=== PATIENT | male | born 1980 | race Caucasian/White ===

== ENCOUNTER 2020-09-01 10:53 | Emergency (ER) | payer SELFPAY ==
--- NOTE | 2020-09-01 11:28 | EDM.PDOC ---
ED HPI GENERAL MEDICAL PROBLEM - General Chief Complaint: Upper Extremity Injury/Pain Stated Complaint: RT WRIST SWELLING Time Seen by Provider: 09/01/20 11:07 Source of Information: Reports: Patient, RN Notes Reviewed History Limitations: Reports: No Limitations - History of Present Illness INITIAL COMMENTS - FREE TEXT/NARRATIVE: Patient is a 40-year-old male who presents to the ED for the evaluation of his right wrist swelling. Patient notes for the better part of this last month, he has appreciated some right wrist swelling, that seems to be worse in the morning. 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 He also notes that he slipped on the ice a week or 2 ago, and landed on his outstretched right wrist. He is appreciating some swelling to the ulnar aspect of his wrist. He is denying any numbness or tingling into the fingers, can use his fingers in all range of motion, patient is right-handed dominant. He has not taken any sort of pain medications or Tylenol or ibuprofen for this. His has been using icy hot on the area, with little to no relief. He denies any other sick-like symptoms. Right Wrist Pain Score (Numeric/FACES): 4 - Related Data Allergies Allergy/AdvReac Type Severity Reaction Status Date / Time No Known Allergies Allergy Verified 09/01/20 11:11 Home Meds: Home Meds predniSONE 20 mg PO ASDIRECTED #15 tab 09/01/20 [Rx] Past Medical History - Past Surgical History HEENT Surgical History: Reports: Other (See Below) Other HEENT Surgeries/Procedures: Jaw Surgery Social & Family History - Tobacco Use Tobacco Use Status *Q: Current Every Day Tobacco User Years of Tobacco use: 24 Packs/Tins Daily: 0.1 - Caffeine Use Caffeine Use: Reports: Energy Drinks - Recreational Drug Use Recreational Drug Use: No Review of Systems - Review of Systems Review Of Systems: Comprehensive ROS is negative, except as noted in HPI. ED EXAM, GENERAL - Physical Exam Exam: See Below Exam Limited By: No Limitations General Appearance: Alert, WD/WN, No Apparent Distress Respiratory/Chest: No Respiratory Distress, Lungs Clear, Normal Breath Sounds, No Accessory Muscle Use, Chest Non-Tender Cardiovascular: Normal Peripheral Pulses, Regular Rate, Rhythm, No Edema Peripheral Pulses: 2+: Radial (L), Radial (R) Extremities: Normal Inspection, Normal Range of Motion (pt states that he has most pain with supination/pronation of wrist), Normal Capillary Refill, Other (mild amount of swelling to wrist appreciated; tinel's negative, but Phalen's was positive). No: Increased Warmth, Redness Psychiatric: Normal Affect, Normal Mood Skin Exam: Warm, Dry, Intact, Normal Color, No Rash Course - Vital Signs Last Recorded V/S: Last Vital Signs Temp 97.6 F 09/01/20 11:07 Pulse 76 09/01/20 11:07 Resp 16 09/01/20 11:07 BP 152/106 H 09/01/20 11:07 Pulse Ox 98 09/01/20 11:07 - Orders/Labs/Meds Orders: Active Orders 24 hr Category Date Time Status Wrist Comp Min 3V Rt [CR] Stat Exams 09/01/20 11:23 Ordered - Re-Assessments/Exams Free Text/Narrative Re-Assessment/Exam: 09/01/20 11:27 Patient presents to the ED for evaluation of his right wrist swelling, due to his reported fall we will go ahead and x-rayed the wrist to make sure there were no small chip/avulsion fractures. Highly likely the patient could be developing some arthritis due to his occupation versus carpal tunnel syndrome. I did go over expectant conservative management with the patient and his , and they verbalized understanding. 09/01/20 12:09 The patient's x-rays were obtained, demonstrate normal acute avulsion or chip fractures appreciated by myself. Official radiology read is pending. Likely again this could be arthritis versus carpal tunnel, pain in the morning would suggest more arthritis in nature, but the positive Phalen's test again would indicate the possibility of carpal tunnel syndrome, nonetheless we will go ahead and send the patient home with a prefabricated wrist splint from the [facility] for suspected carpal tunnel management, send him home with a course of prednisone for inflammation, and have him follow-up with a provider of choice for ongoing management. Departure - Departure Time of Disposition: 12:12 Disposition: Home, Self-Care 01 Condition: Good Clinical Impression: Pain and swelling of right wrist, Carpal tunnel syndrome of right wrist - Discharge Information *PRESCRIPTION DRUG MONITORING PROGRAM REVIEWED*: No *COPY OF PRESCRIPTION DRUG MONITORING REPORT IN PATIENT ADY: No Instructions: Carpal Tunnel Syndrome, [id number] Referrals: PCP,None [Primary Care Provider] - Forms: ED Department Discharge Additional Instructions: You have been evaluated in the ED for your right wrist pain/swelling. Your x-ray demonstrated no acute fractures or other bony abnormalities of your right wrist on today's visit. Please use ice as tolerated to the affected area. Please try to elevate the affected area to relieve swelling. You were given a prescription for prednisone, please take as directed, to help with the inflammation of the affected joint. Highly likely you could have a component of arthritis, or the possibility of carpal tunnel developing in your right wrist due to your occupation. You have been given a wrist splint to wear for further immobilization of the wrist, you only need to wear this at night for the most part, but can wear it continuously if it provides you more comfort. Highly recommend you set up with your primary care physician of choice, our clinic number [phone], the [place] [facility] number [phone]. Any family practice provider would be able to provide you with the services. Please return to ED if your symptoms should change or worsen. Sepsis Event Note (ED) - Evaluation Sepsis Screening Result: No Definite Risk - Focused Exam Vital Signs: Vital Signs Temp Pulse Resp BP Pulse Ox 09/01/20 11:07 97.6 F 76 16 152/106 H 98 - My Orders Last 24 Hours: My Active Orders 09/01/20 11:23 Wrist Comp Min 3V Rt [CR] Stat - Assessment/Plan Last 24 Hours: My Active Orders 09/01/20 11:23 Wrist Comp Min 3V Rt [CR] Stat
--- NOTE | 2020-09-01 13:23 | CR ---
Right wrist: 4 views centered to the right wrist were obtained. Comparison: No previous study. No acute fracture, dislocation or other bony abnormality is appreciated. Impression: 1. Nothing acute is seen on right wrist exam. Diagnostic code #1
== END 2020-09-01 13:00 | disposition home or self-care (01) ==
LOC: JD.ED 10:53
DX: G56.01 Carpal tunnel syndrome, right upper limb (principal); Z72.0 Tobacco use
CPT/HCPCS: 73110-26-RT; 73110-RT; 99283; 99283-25